=== PATIENT | female | born 1985 | race Hispanic/Latino ===

== ENCOUNTER 2023-04-30 07:53 | Outpatient (CLI) | payer OTHER ==
[2023-04-30 09:26] LABS: BHCG - Serum Negative (NEGATIVE); Pregs Control Background? CLEAR/WHITE (CLR/WHITE); Pregs Control Bar Appear? YES (CONTROL BAR)
== END 2023-04-30 07:54 | disposition home or self-care (01) ==
LOC: BICRAD 07:53
PROVIDERS: ATTEND Student in an Organized Health Care Education/Training Program
DX: M54.2 Cervicalgia (principal); M54.6 Pain in thoracic spine; M54.50 Low back pain, unspecified; M41.84 Other forms of scoliosis, thoracic region
CPT/HCPCS: 36415; 72040; 72072; 72100; 84703